=== PATIENT | male | born 1945 | race Caucasian/White ===

== ENCOUNTER 2021-01-08 06:30 | Day surgery (SDCO) | payer MEDICARE, OTHER ==
[~2021-01-08] VITALS: Ht 173 cm; Wt 118.0 kg
[~2021-01-08 06:30] MED LIST: BUMEX1 MG PO; DICLOFENAC SODI75 MG PO; DILTIAZEM HCL30 MG PO; JANUMET 50-1,01 EACH PO; LANSOPRAZOLE30 MG PO; METOPROLOL SUCC25 MG PO
--- NOTE | 2021-01-08 16:01 | NUR ---
PT. HAD A RTKR THIS DATE. HE WILL D/C HOME WITH SPOUSE. HE HAS A RW. PT. REQUESTS [facility]. TC TO [facility] AND SPOKE WITH NUPUR. SHE IS AWARE OF PT. PT. SIGNED PT. CHOICE FORM.
[2021-01-09 06:57] LABS: BASOPHIL 0.1 % (0-2); EOSINOPHIL 0 % (0-7); HGB 11.8 g/dl (13.2-18.0); LYMPHOCYTE 3.4 % (15-48); MCH 29.5 pg (25.0-31.0); MCHC 31.1 g/dL (32.0-36.0); NEUTROPHIL 89.8 % (41-80); NRBC 0; PLT 306 K/uL (150-400); RDW 13.4 % (11.5-14.0)
[2021-01-09 07:35] LABS: BUN/CREAT RATIO (CALC) 15.9 RATIO; CREATININE 2.26 mg/dL (0.67-1.17)
[2021-01-09 07:40] LABS: POTASSIUM 5.8 mmol/L (3.5-5.1)
[2021-01-09 15:57] LABS: BUN/CREAT RATIO (CALC) 17.1 RATIO; CREATININE 2.28 mg/dL (0.67-1.17); POTASSIUM 5.2 mmol/L (3.5-5.1)
[2021-01-10 05:57] LABS: BASOPHIL 0.2 % (0-2); EOSINOPHIL 0.2 % (0-7); HCT 36.9 % (42.0-52.0); HGB 11.3 g/dl (13.2-18.0); LYMPHOCYTE 8.3 % (15-48); MCH 29.1 pg (25.0-31.0); MCHC 30.6 g/dL (32.0-36.0); MCV 95.1 fL (78.0-100.0); MONOCYTE 8.1 % (0-12); MPV 9.2 fL (6.0-9.5); NEUTROPHIL 82.7 % (41-80); NRBC 0; PLT 254 K/uL (150-400); RBC 3.88 M/uL (4.70-6.00); RDW 13.9 % (11.5-14.0); WBC 12.6 K/uL (4.0-10.5)
[2021-01-10 06:17] LABS: BUN/CREAT RATIO (CALC) 18.1 RATIO; CREATININE 1.82 mg/dL (0.67-1.17); POTASSIUM 4.9 mmol/L (3.5-5.1)
[2021-01-10] MEDS ORDERED: FEOSOL325 MG PO (08:11)
[2021-01-10] MEDS ORDERED: XARELTO10 MG PO (08:11)
[2021-01-10] MEDS ORDERED: OXYCODONE-ACET1 EAC1 PO ×2 (08:12→10:31)
--- NOTE | 2021-01-10 10:10 | NUR ---
PT. TO D/C HOME WITH SPOUSE. PT. REQUESTED 04/17. [facility] DELIVERED 04/17. PT. IS TO D/C HOME THIS DATE. TC TO [facility] AND ADVISED OF PT. D/C HOME THIS DATE. TC TO [facility] AND ADVISED OF PT D/C THIS DATE.
== END 2021-01-10 11:35 | disposition home or self-care (01) ==
LOC: FAS 06:30 → FMS 10:40 → FAS 11:00 → FMS 01-09 11:54
PROVIDERS: Legal Medicine; Nurse Practitioner; ADMIT Internal Medicine
DX: M17.11 Unilateral primary osteoarthritis, right knee (principal); M21.161 Varus deformity, not elsewhere classified, right knee; I10 Essential (primary) hypertension; E11.9 Type 2 diabetes mellitus without complications; E78.5 Hyperlipidemia, unspecified; J45.909 Unspecified asthma, uncomplicated; G47.30 Sleep apnea, unspecified; K21.9 Gastro-esophageal reflux disease without esophagitis; E87.6 Hypokalemia; R09.02 Hypoxemia; R07.9 Chest pain, unspecified; F17.220 Nicotine dependence, chewing tobacco, uncomplicated; Z88.0 Allergy status to penicillin; Z79.1 Long term (current) use of non-steroidal anti-inflammatories (NSAID); Z79.84 Long term (current) use of oral hypoglycemic drugs; Z79.899 Other long term (current) drug therapy
CPT/HCPCS: 36415; 73560; 80048; 85025; 94010; 94760; 94762; 97110; 97162; 97166; 97530-GP; 97535; C1713; C1776; G0378; J0171; J0735; J1100; J1170; J1885; J2001; J2250; J2270; J2370; J2405; J2704; J2795; J3010; J7030; J7120